=== PATIENT | female | born 1985 ===

== ENCOUNTER 2018-10-08 18:05 | Emergency (ER) | payer OTHER, SELFPAY ==
[2018-10-08 18:05] VITALS: BMI 27.1
[2018-10-08 18:36] VITALS: BP 101/68; PULSE 63; RESP 17; TEMP 98.6; O2SAT 99
--- NOTE | 2018-10-08 21:21 | ED PDOC ---
HPI: CCC, URI, Sore Throat Time Seen by Provider: 10/08/18 20:10 Chief Complaint (Nursing): ENT Problem Chief Complaint (Provider): ENT problem History Per: Patient History/Exam Limitations: no limitations Have you had recent travel within the past 21 days to any of the following countries: [place], [place], [place] or [place]?: No Onset/Duration Of Symptoms: Days (5x) Current Symptoms Are (Timing): Still Present Sick Contacts (Context): None Associated Symptoms: Nasal Congestion. denies: Fever, Cough, Other (changes in hearing) Ear Symptoms: Right: Ear Pain Severity: Moderate Additional Complaint(s): 33 year old female with no pertinent past medical history presents to the ED for an evaluation of right ear pain ongoing for 5x days. Patient states that the pain radiates down to her neck and up to her head. Patient reports taking tylenol with no relief, last dose was this morning. Patient reports having some nasal congestion. Otherwise: (-) cough, (-) changes in hearing, (-) fevers, (-) sick contacts, (-) recent travel, (-) neck stiffness. Last known menstrual period: currently. PMD: Clinic Past Medical History Reviewed: Historical Data, Nursing Documentation, Vital Signs Vital Signs: Last Vital Signs Temp 98.6 F 10/08/18 18:33 Pulse 63 10/08/18 18:33 Resp 17 10/08/18 18:33 BP 101/68 10/08/18 18:33 Pulse Ox 99 10/08/18 18:33 IMAN Report Viewed: Yes - Medical History PMH: No Chronic Diseases Denies: Chronic Kidney Disease - Surgical History Surgical History: Appendectomy, - Family History Family History: States: No Known Family Hx - Social History Current smoker - smoking cessation education provided: No Alcohol: None Drugs: Denies - Immunization History Hx Tetanus Toxoid Vaccination: No Hx Influenza Vaccination: No Hx Pneumococcal Vaccination: No - Home Medications Home Medications: Ambulatory Orders Medication Instructions Recorded Vit No.126/Iron/Folic 1 tab PO DAILY 03/28/16 [Classic Tablet] Ibuprofen [Motrin Tab] 600 mg PO Q4H PRN #30 tab 03/31/16 oxyCODONE/Acetaminophen [Percocet 1 tab PO Q4 PRN #15 tab 03/31/16 5/325 mg Tab] Amoxicillin 875 mg PO BID 10 Days #20 tablet 10/08/18 Ibuprofen [Motrin Tab] 600 mg PO Q6 PRN #20 tab 10/08/18 - Allergies Allergies/Adverse Reactions: Allergies Allergy/AdvReac Type Severity Reaction Status Date / Time No Known Allergies Allergy Verified 10/08/18 18:36 Review of Systems ROS Statement: Except As Marked, All Systems Reviewed And Found Negative Constitutional: Negative for: Fever Eyes: Negative for: Vision Change ENT: Positive for: Ear Pain (right ear pain), Nose Congestion Respiratory: Negative for: Cough Musculoskeletal: Negative for: Other (neck stiffness) Physical Exam - Reviewed Nursing Documentation Reviewed: Yes Vital Signs Reviewed: Yes - Physical Exam Comments: GENERAL APPEARANCE: Patient is awake, alert, oriented x 3, mild obvious discomfort from pain HEAD: atraumatic SKIN: Warm, dry; (-) cyanosis. EYES: EOMI, PERRLA. ENMT: Canals : (-) cerumen impaction, TMs: (+) right TM bulging and erythematous Obvious discomfort on exam (-)effusion, (-) perforation,(-) vesicles, Left ear normal. Frontal / maxillary sinuses : (-) tenderness. (-) TMJ tenderness. (-) mastoid tenderness Pharynx: Clear; (-) erythema, (-) exudate. Airway patent: (-) stridor. NECK: (-) stiffness, (-) tenderness, (-) lymphadenopathy, (-) meningismus. Full ROM LUNGS: clear, (-) wheezing, (-) rhonchi. CARDIAC: RRR, (-) murmurs, (-) gallops. - ECG O2 Sat by Pulse Oximetry: 99 (RA) Pulse Ox Interpretation: Normal Medical Decision Making Medical Decision Makin:10 Initial impression: 33 year old female with right ear pain. Will treat for otitis media Initial plan: * motrin tab 600 mg PO * reevaluation Patient will be discharged home with amoxicillin. 20:23 pt to be discharged home Discussed diagnosis, treatment, return precautions and f/u with pt who is under standing, in agreement and stable for dc Scribe Attestation: Documented by Lawanda Méndez, acting as a scribe for Con Delgado PA-C. Provider Scribe Attestation: All medical record entries made by the Scribe were at my direction and personally dictated by me. I have reviewed the chart and agree that the record accurately reflects my personal performance of the history, physical exam, medical decision making, and the department course for this patient. I have also personally directed, reviewed, and agree with the discharge instructions and disposition. Disposition - Clinical Impression Clinical Impression: Otitis media, right - Patient ED Disposition Is Patient to be Admitted: No Counseled Patient/Family Regarding: Studies Performed, Diagnosis, Need For Followup, Rx Given - Disposition Referrals: [facility] [Outside] Disposition: Routine/Home Disposition Time: 20:23 Condition: STABLE Additional Instructions: Return to ED for new or worsening symptoms, fever >100.4, changes in hearing, severe pain. Follow up with your doctor in 5-7 days. Take antibiotics as prescribed until finished. Alternate between Tylenol and Ibuprofen for pain. Prescriptions: Amoxicillin 875 mg PO BID 10 Days #20 tablet Ibuprofen [Motrin Tab] 600 mg PO Q6 PRN #20 tab PRN Reason: Pain, Moderate (4-7) Instructions: Ear Infections (Otitis Media) (DC) Forms: [employer] (French) Print Language: GREEK - POA Present On Arrival: None
== END 2018-10-08 22:18 | disposition home or self-care (01) ==
LOC: H.ER 18:05
DX: H66.91 Otitis media, unspecified, right ear (principal)